=== PATIENT | female | born 1990 ===

== ENCOUNTER 2022-02-03 14:54 | Inpatient (IN) | payer OTHER ==
[~2022-02-03] VITALS: Ht 165.1 cm; Wt 3.2 kg
[2022-02-03] MEDS ORDERED: SYNTHROID50 MCG PO (15:02)
[2022-02-03] MEDS ORDERED: PRENATAL + DHA1 EAC1 PO (15:02)
== END 2022-02-06 15:03 | disposition home or self-care (01) | DRG 788 ==
LOC: LDR 14:54 → OB/GYN 14:54
PROVIDERS: ADMIT Obstetrics & Gynecology; ATTEND Obstetrics & Gynecology
PROC: 4A1HXCZ Monitoring of Products of Conception, Cardiac Rate, External Approach (ICD-10-PCS; 2022-02-03)
PROC: 10D00Z1 Extraction of Products of Conception, Low, Open Approach (ICD-10-PCS; principal; 2022-02-03 15:00)
DX: O34.211 Maternal care for low transverse scar from previous cesarean delivery (principal); Z3A.39 39 weeks gestation of pregnancy; Z37.0 Single live birth; Z20.822 Contact with and (suspected) exposure to COVID-19